=== PATIENT | male | born 1970 | race Caucasian/White ===

== ENCOUNTER 2021-12-12 20:29 | Emergency (ER) | payer BC, OTHER ==
[2021-12-12] MEDS ORDERED: Sodium Chloride 0.9% 1000 ML 1,000 ML IV SCH (20:45)
--- NOTE | 2021-12-12 21:00 | ERPHSYRPT ---
- History of Present Illness Patient Subjective Stated Complaint: rt sided lower abd pain x2 weeks, insurance will not approve CT scan, I continue to be in pain and I want some answers. Triage Nursing Assessment: pt ambulated into ER without diff, spouse at bedside. Pt c/o RLQ abd pain x2 weeks, intermittent. Pt has had this pain x2 weeks, insurance had not approve CT scan so pt came to ER due to alot of pain tonight. Pt denies nausea or vomiting or diarrhea, but has had some indigestion. Abd soft with active bs x4 quad, tender to RLQ on palpation, pain radiates to lower back. Pt has lost approx 100 pounds since last year and is not trying to lose weight. Physician History: Pt c/o RLQ abd pain x2 weeks, intermittent. Pt has had this pain x2 weeks, insurance had not approve CT scan so pt came to ER due to alot of pain tonight. Pt denies nausea or vomiting or diarrhea, but has had some indigestion. Abd soft with active bs x4 quad, tender to RLQ on palpation, pain radiates to lower back. Pt has lost approx 100 pounds since last year and is not trying to lose weight. Timing/Duration: week(s) Quality: aching, dullness, fullness Abdominal Pain Onset Location: RLQ Pain Radiation: no radiation Severity of Pain-Max: moderate Severity of Pain-Current: moderate Modifying Factors: Improves With: nothing Associated Symptoms: loss of appetite, other (weight loss) Previous symptoms: no prior history Allergies/Adverse Reactions: No Known Drug Allergies Allergy (Unverified 12/12/21 20:53) Home Medications: Gabapentin 300 mg PO TID 12/12/21 [History] Glipizide 10 mg [Glucotrol 10 MG] 10 mg PO DAILY 12/12/21 [History] Hctz/Triamterene 25/37.5 mg [Maxzide 25MG] 1 tab PO DAILY 12/12/21 [History] Lisinopril 10 mg [Zestril 10 MG] 10 mg PO DAILY 12/12/21 [History] Metformin HCl 500 mg [Glucophage 500 MG] 1,000 mg PO BID 12/12/21 [History] Pravastatin Sodium 20 mg PO HS 12/12/21 [History] Hx Tetanus, Diphtheria Vaccination/Date Given: No Hx Influenza Vaccination/Date Given: No Hx Pneumococcal Vaccination/Date Given: No Immunizations Up to Date: No Travel Risk - International Travel Have you traveled outside of the country in past 3 weeks: No - Coronavirus Screening Are you exhibiting any of the following symptoms?: No Close contact with a COVID-19 positive Pt in past 14-21 Days: No - Vaccine Status Have you recieved a Covid-19 vaccination: Yes Heddler Tier: Ubi - Vaccination Dates Date of 2cond Vaccination (if applicable): . - Review of Systems Constitutional: No Fever, No Chills Eyes: No Symptoms Ears, Nose, & Throat: No Symptoms Respiratory: No Cough, No Dyspnea Cardiac: No Chest Pain, No Edema, No Syncope Abdominal/Gastrointestinal: Appetite Changes, No Abdominal Pain, No Nausea, No Vomiting, No Diarrhea Genitourinary Symptoms: No Dysuria Musculoskeletal: No Back Pain, No Neck Pain Skin: No Rash Neurological: No Dizziness, No Focal Weakness, No Sensory Changes Psychological: No Symptoms Endocrine: No Symptoms All Other Systems: Reviewed and Negative - Past Medical History Pertinent Past Medical History: Yes Neurological History: No Pertinent History ENT History: No Pertinent History Cardiac History: Hypertension Endocrine Medical History: Diabetes Type II Musculoskeletal History: Fractures GI Medical History: No Pertinent History History: No Pertinent History Psycho-Social History: No Pertinent History Male Reproductive Disorders: No Pertinent History Other Medical History: rib fx, nose fx - Past Surgical History Past Surgical History: No - Social History Smoking Status: Current every day smoker Exposure to second hand smoke: Yes Drug Use: none Patient Lives Alone: No - Nursing Vital Signs Nursing Vital Signs: Initial Vital Signs Pulse Rate 85 12/12/21 20:30 Respiratory Rate 20 12/12/21 20:30 Blood Pressure 183/112 12/12/21 20:30 O2 Sat by Pulse Oximetry 98 12/12/21 20:30 Pain Scale Pain Intensity 8 - Physical Exam General Appearance: no apparent distress, alert Eye Exam: PERRL/EOMI, eyes nml inspection Ears, Nose, Throat Exam: normal ENT inspection, pharynx normal, moist mucous membranes Neck Exam: normal inspection, non-tender, supple, full range of motion Respiratory Exam: normal breath sounds, lungs clear, No respiratory distress Cardiovascular Exam: regular rate/rhythm, normal heart sounds Gastrointestinal/Abdomen Exam: soft, tenderness (right lower quadrant), organomegaly (hepatomegaly), No distention, No mass Back Exam: normal inspection, normal range of motion, No CVA tenderness, No vertebral tenderness Extremity Exam: normal inspection, normal range of motion, pelvis stable Neurologic Exam: alert, oriented x 3, cooperative, normal mood/affect, nml cerebellar function, sensation nml, No motor deficits Skin Exam: normal color, warm, dry SpO2: 98 - Course Nursing assessment & vital signs reviewed: Yes - CT Exams Abdomen/Pelvis CT Interpretation: Tele-radiologist Report (spleenomegaly), Normal Appendix, No appendicitis Ordered Tests: Active Orders 24 hr Category Date Time Status ABDOMEN AND PELVIS W&WO CONTRA [CT] Stat Exams 12/12/21 20:37 Taken AMYLASE Stat Lab 12/12/21 21:07 Completed CBC W DIFF Stat Lab 12/12/21 21:07 Completed CMP Stat Lab 12/12/21 21:07 Completed LIPASE Stat Lab 12/12/21 21:07 Completed UA W/RFX CULTURE Stat Lab 12/12/21 Ordered Medication Summary Generic Name Dose Route Start Last Admin Trade Name Freq PRN Reason Stop Dose Admin Sodium Chloride 1,000 mls @ 100 mls/hr 12/12/21 20:45 12/12/21 21:23 Sodium Chloride 0.9% 1000 Ml IV 01/11/22 20:44 100 mls/hr .Q10H DOLLY Administration Discontinued Medications Generic Name Dose Route Start Last Admin Trade Name Freq PRN Reason Stop Dose Admin Labetalol HCl 10 mg 12/12/21 22:07 12/12/21 22:22 Labetalol Hcl 20 Mg/4 Ml Disp.Syringe IV 12/12/21 22:08 10 mg STAT ONE Administration Labetalol HCl Confirm 12/12/21 22:20 Labetalol Hcl 20 Mg/4 Ml Disp.Syringe Administered 12/12/21 22:21 Dose 20 mg IV .Buyt.In-Ceradis ONE Lab/Rad Data: Laboratory Result Diagrams 12/12/21 21:07 12/12/21 21:07 Laboratory Results 12/12/21 12/12/21 Range/Units 21:07 21:07 WBC 6.1 (4.0-10.5) x10^3/uL RBC 5.18 (4.1-5.6) x10^6/uL Hgb 15.2 (12.5-18.0) g/dL Hct 41.7 L (42-50) % MCV 80.5 (78-100) fL MCH 29.3 (26-32) pg MCHC 36.5 H (32-36) g/dL RDW 12.8 (11.5-14.0) % Plt Count 166 (150-450) x10^3/uL MPV 9.8 (7.5-11.0) fL Gran % 62.2 (36.0-66.0) % Immature Gran % (Auto) 0.2 (0.00-0.4) % Nucleat RBC Rel Count 0.0 (0.00-0.1) % Eos # (Auto) 0.08 (0-0.5) x10^3/uL Immature Gran # (Auto) 0.01 (0.00-0.03) x10^3u/L Absolute Lymphs (auto) 1.73 (1.0-4.6) x10^3/uL Absolute Monos (auto) 0.43 (0.0-1.3) x10^3/uL Absolute Nucleated RBC 0.00 (0.00-0.01) x10^3u/L Lymphocytes % 28.2 (24.0-44.0) % Monocytes % 7.0 (0.0-12.0) % Eosinophils % 1.3 (0.00-5.0) % Basophils % 1.1 (0.0-0.4) % Absolute Granulocytes 3.82 (1.4-6.9) x10^3/uL Basophils # 0.07 (0-0.4) x10^3/uL Sodium 136 L (137-145) mmol/L Potassium 4.5 (3.5-5.1) mmol/L Chloride 98 (98-107) mmol/L Carbon Dioxide 28 (22-30) mmol/L Anion Gap 14.2 (5-15) MEQ/L BUN 14 (9-20) mg/dL Creatinine 0.60 L (0.66-1.25) mg/dL Estimated GFR > 60.0 ML/MIN Glucose 220 H (74-106) mg/dL Calcium 9.0 (8.4-10.2) mg/dL Total Bilirubin 1.00 (0.2-1.3) mg/dL AST 20 (17-59) U/L ALT 17 (0-50) U/L Alkaline Phosphatase 86 (38-126) U/L Serum Total Protein 7.1 (6.3-8.2) g/dL Albumin 4.4 (3.5-5.0) g/dL Amylase 41 (30-110) U/L Lipase 155 (23-300) U/L - Progress Progress: unchanged Will see patient in: hospital (full admit) Counseled pt/family regarding: diagnosis, need for follow-up, rad results - Departure Departure Disposition: Home Clinical Impression: Splenomegaly Abdominal pain Qualifiers: Abdominal location: right lower quadrant Qualified Code(s): R10.31 - Right lower quadrant pain Condition: Stable Critical Care Time: No Referrals: MYLENE BURNETTE MD [Primary Care Provider] - Follow up/PCP as directed Additional Instructions: Discharge/Care Plan ZAHRA ALONZO was seen on 12/12/21 in the Emergency Room. The patient was counseled regarding Diagnosis,Lab results, Imaging studies, need for follow up and when to return to the Emergency Room. Prescriptions given: Discharge Note I have spoken with the patient and/or caregivers. I have explained the patient's condition, diagnosis and treatment plan based on the information available to me at this time. I have answered the patient's and/or caregiver's questions and addressed any concerns. The patient and/or caregivers have as good understanding of the patient's diagnosis, condition and treatment plan as can be expected at this point. The vital signs have been stable. The patient's condition is stable and appropriate for discharge from the emergency department. The patient will pursue further outpatient evaluation with the primary care physician or other designated or consulting physician as outlined in the discharge instructions. The patient and/or caregivers are agreeable to this plan of care and follow-up instructions have been explained in detail. The patient and/or caregivers have received these instruction. The patient/and or caregivers are aware that any significant change in condition or worsening of symptoms should prompt an immediate return to this or the closest emergency department or call 911. ZAHRA ALONZO was seen on 12/12/21 n the Emergency Room. At that time you were treated for an emergent condition, during your visit Laboratory, Radiology and/or other procedures may have been ordered. It is very important that you follow-up with your Primary Care Physician MYLENE BURNETTE within the next 24-48 hours to review your Emergency Room visit and the final results of testing that was ordered. Some test results such as Urine Cultures, Blood Cultures, and other cultures if ordered will not be finalized for 24-48 hours. If you do not have a Primary Care Provider please call the medical records department at [phone] ext [phone] to obtain a copy of your results or you may sign into our patient portal to obtain these results by visiting us @ [email or web address] and completing the following steps: 1. Click on the Patient Portal link 2. Click the Patient Self Enrollment Link to complete the enrollment form and entering your 3. Once the enrollment form is completed you will receive an email with a temporary ID and password at the email address you provided. 4. Next choose a user name and password. Your user name must be at least 4 characters long and your password must be at least 4 characters long. 5. Choose a security question from the list and provide your answer to the question. If you already have signed into the Health Portal you may access your Health Care Information 23/09 by the following steps: 1. Login to our website @ [email or web address] 2. Enter your original user name and password. FAQS The [facility] Portal is an online tool that contains your Lab Results, Radiology Reports, Visit History, Discharge Instructions and Health Summary Lab and Radiology Results will not be available for 72 hours on the portal. The Portal is a secure site, passwords are encryted and URLs are re-written so they cannot be copied and pasted. You and authorized family members are the only ones who can access your Portal. Also there is a timeout feature that protects your information if you leave the Portal page open. If you have technical difficulty please use the Contact Us link on the page this will allow you to submit any questions you have regarding the Portal or you may contact the Medical Record Department at [phone] ext [phone].
[2021-12-12 21:10] LABS: Absolute Neutrophil Ct (ANC) 3.82 x10^3/uL (1.4-6.9); Basophil (Absolute #) 0.07 x10^3/uL (0-0.4); Eosinophil % 1.3 % (0.00-5.0); Eosinophil (Absolute #) 0.08 x10^3/uL (0-0.5); Hematocrit 41.7 % (42-50); Hemoglobin 15.2 g/dL (12.5-18.0); Lymphocyte (Absolute #) 1.73 x10^3/uL (1.0-4.6); Lymphocytes % 28.2 % (24.0-44.0); Mean Cell Volume 80.5 fL (78-100); Mean Corpuscular Hemoglobin 29.3 pg (26-32); Mean Corpuscular Hgb Concent. 36.5 g/dL (32-36); Mean Platelet Volume 9.8 fL (7.5-11.0); Monocyte (Absolute #) 0.43 x10^3/uL (0.0-1.3); Neutrophil % 62.2 % (36.0-66.0); Platelet Count 166 x10^3/uL (150-450); Red Blood Count 5.18 x10^6/uL (4.1-5.6); Red Cell Distribution Width 12.8 % (11.5-14.0); White Blood Count 6.1 x10^3/uL (4.0-10.5)
[2021-12-12] MEDS ORDERED: Sodium Chloride 0.9% 1000 ML 1,000 ML ONE (21:22)
[2021-12-12 21:33] LABS: ALBUMIN 4.4 g/dL (3.5-5.0); ALKALINE PHOSPHATASE 86 U/L (38-126); AMYLASE 41 U/L (30-110); ANION GAP 14.2 MEQ/L (5-15); BLOOD UREA NITROGEN 14 mg/dL (9-20); CHLORIDE 98 mmol/L (98-107); Carbon Dioxide 28 mmol/L (22-30); EST GLOMERULAR FILTRATION RATE > 60.0 ML/MIN; Glucose 220 mg/dL (74-106); LIPASE 155 U/L (23-300); Potassium 4.5 mmol/L (3.5-5.1); SGOT/AST 20 U/L (17-59); SGPT/ALT 17 U/L (0-50); SODIUM 136 mmol/L (137-145); Total Protein 7.1 g/dL (6.3-8.2)
[2021-12-12] MEDS ORDERED: TRANDATE 20 MG/4 ML SYRINGE IV ONE ×2 (22:07→22:20)
[2021-12-12 22:12] VITALS: O2SAT 98
[2021-12-12 22:46] VITALS: BP 156/99; PULSE 73
--- NOTE | 2021-12-13 08:39 | XRAY ---
Indication: Right lower quadrant pain, nausea, and vomiting 2.5 weeks. Multiple contiguous axial images obtained through the abdomen and pelvis prior to and following 80 cc Isovue 370 contrast as ordered. Comparison: None Lung bases demonstrates tiny right base calcified granuloma. Heart not enlarged. Noncontrasted images demonstrates tiny splenic calcified granulomas. No other visceral calcifications/calculi. Noncontrasted stomach and bowel loops appear nonobstructed with normal appendix. There is mild diffuse scattered colonic fecal debris throughout. No free fluid/air. Postcontrast images demonstrates normal visceral enhancement and renal excretion. Spleen is enlarged measuring 16.4 cm. Remaining liver, gallbladder, pancreas, spleen, adrenal glands, kidneys, ureters, bladder, and aorta are normal in CT appearance and attenuation. No pathologic retroperitoneal lymphadenopathy. Osseous structures intact with minimal degenerative changes throughout the spine. No ventral or inguinal hernias. Impression: 1. Mild diffuse fecal stasis, splenomegaly, and old granulomatous disease. 2. Remaining CT abdomen/pelvis with and without contrast exam is negative.
== END 2021-12-12 22:49 | disposition home or self-care (01) ==
LOC: ED 20:29
DX: R16.1 Splenomegaly, not elsewhere classified (principal); R10.31 Right lower quadrant pain; I10 Essential (primary) hypertension; E11.9 Type 2 diabetes mellitus without complications; Z72.0 Tobacco use; Z79.84 Long term (current) use of oral hypoglycemic drugs; Z79.899 Other long term (current) drug therapy
CPT/HCPCS: 36000; 36415; 74178; 80053; 82150; 83690; 85025; 96374; 99284

== ENCOUNTER 2022-01-18 05:49 | Day surgery (SDC) | payer OTHER ==
[2022-01-18] MEDS ORDERED: DIPRIVAN 200 MG/20 ML IV ONE ×3 (05:57→08:00)
[2022-01-18] MEDS ORDERED: Xylocaine-Mpf 2% 5 Ml Vial ONE (05:57)
[2022-01-18] MEDS ORDERED: Lactated Ringers 1,000 ML IV SCH (06:30)
[2022-01-18] MEDS ORDERED: GlucaGen 1 MG ONE (07:47)
[2022-01-18] MEDS ORDERED: Ephedrine Sulfate 50 MG/ML ONE (07:49)
[2022-01-18 08:51] VITALS: O2SAT 94
[2022-01-18 09:04] VITALS: BP 148/88; PULSE 85
--- NOTE | 2022-02-07 08:50 | OP ---
SURGERY DATE/TIME: 01/18/2022 0711 PREOPERATIVE DIAGNOSES: 1) Change in bowel habits, constipation, screening. 2) Epigastric pain, nausea and vomiting. POSTOPERATIVE DIAGNOSES: 1) Gastritis. 2) Mild sigmoid diverticulosis. PROCEDURES: 1) EGD and cold biopsy. 2) Colonoscopy complete to cecum. SURGEON: Jeffrey Mares M.D. ANESTHESIA: MAC. COMPLICATIONS: None. CONDITION: Stable. INDICATION: A patient presents for evaluation. DESCRIPTION OF PROCEDURE: Taken to endoscopy. MAC sedation provided. Good anesthesia is present. Scope introduced. Pharyngoesophageal junction normal. Esophagus normal down to gastroesophageal junction. No hiatal hernia. Minimal irritation. In the fundus, body and antrum there was gastritis. 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 Pylorus satisfactory. Duodenal bulb satisfactory. Second portion satisfactory. Scope looped on itself, no hiatal hernia. Scope withdrawn. Anal digital examination satisfactory. Prostate satisfactory. Scope advanced to the cecum. Base of the cecum, ileocecal valve, appendiceal orifice was visualized. Ascending, hepatic, transverse, splenic, descending there was mild sigmoid diverticulosis. Rectum and anus normal. IMPRESSION: Mild diverticulosis. PLAN: Five to ten years.
== END 2022-01-18 09:10 | disposition home or self-care (01) ==
LOC: SDC 05:49 → EDSTATUS 18:49
PROVIDERS: ATTEND Surgery
DX: K57.30 Diverticulosis of large intestine without perforation or abscess without bleeding (principal); K29.70 Gastritis, unspecified, without bleeding; R19.4 Change in bowel habit; R10.13 Epigastric pain; R11.10 Vomiting, unspecified; Z12.5 Encounter for screening for malignant neoplasm of prostate; E11.9 Type 2 diabetes mellitus without complications
CPT/HCPCS: 36415; 43239; 45378; 82947; 84439; 84443; G0103; 88305; J1610; J2704

== ENCOUNTER 2024-07-14 23:55 | Observation (INO) | payer BC, OTHER ==
[2024-07-14] MEDS ORDERED: DUONEB 0.5-3 MG/3 ml Neb IH ONE (23:58)
[2024-07-15 00:16] LABS: Absolute Neutrophil Ct (ANC) 4.08 x10^3/uL (1.78-5.38); BASOPHIL % 1.5 % (0.2-1.2); Basophil (Absolute #) 0.12 x10^3/uL (0.01-0.08); Eosinophil % 3.8 % (0.8-7.0); Eosinophil (Absolute #) 0.31 x10^3/uL (0.04-0.54); Hematocrit 43.1 % (40.1-51.0); Hemoglobin 15.3 g/dL (13.7-17.5); IMMATURE GRAN # 0.01 x10^3u/L (0.001-0.031); IMMATURE GRAN % 0.1 % (0.001-0.429); Lymphocyte (Absolute #) 3.07 x10^3/uL (1.32-3.57); Lymphocytes % 38.1 % (21.8-53.1); Mean Cell Volume 81.2 fL (79.0-92.2); Mean Corpuscular Hemoglobin 28.8 pg (25.7-32.2); Mean Corpuscular Hgb Concent. 35.5 g/dL (32.3-36.5); Mean Platelet Volume 10.8 fL (9.4-12.4); Monocyte (Absolute #) 0.47 x10^3/uL (0.30-0.82); Monocytes % 5.8 % (5.3-12.2); Neutrophil % 50.7 % (34.0-67.9); Platelet Count 184 x10^3/uL (163-337); Red Blood Count 5.31 x10^6/uL (4.63-6.08); Red Cell Distribution Width 13.2 % (11.6-14.4); White Blood Count 8.1 x10^3/uL (4.23-9.07)
[2024-07-15 00:27] LABS: VBG BASE EXCESS 1.8 (-2.0-2.0); VBG CARBOXYHEMOGLOBIN 4.1 % T HGB (0.0-6.9); VBG HCO3- 23.9 meq/L (22-28); VBG HEMOGLOBIN 14.9; VBG O2 SATURATION 98.9 (95-100); VBG POTASSIUM 3.6 (3.5-5.1); VBG pH 7.51 (7.32-7.42)
[2024-07-15 00:30] LABS: ALBUMIN 5.1 g/dL (3.5-5.0); ALKALINE PHOSPHATASE 106 U/L (38-126); ANION GAP 18.7 MEQ/L (5-15); BLOOD UREA NITROGEN 17 mg/dL (9-20); CHLORIDE 102 mmol/L (98-107); Calcium 9.7 mg/dL (8.4-10.2); Carbon Dioxide 25 mmol/L (22-30); EST GLOMERULAR FILTRATION RATE 103.4 ML/MIN; Glucose 216 mg/dL (74-106); Potassium 3.7 mmol/L (3.5-5.1); SGOT/AST 28 U/L (17-59); SGPT/ALT 22 U/L (0-50); SODIUM 142 mmol/L (135-145); TROPONIN < 0.012 ng/mL (0.000-0.033); Total Protein 8.1 g/dL (6.3-8.2)
--- NOTE | 2024-07-15 00:54 | ERPHSYRPT ---
- History of Present Illness Time Seen by Provider: 07/15/24 00:00 Source: patient Exam Limitations: no limitations Patient Subjective Stated Complaint: "I was on my tractor and a hose popped off and then all I could see was a cloud of white, I think it was anhydrous ammonia. I got really lightheaded and felt like I could . I drove on the side of the road and called 911." Triage Nursing Assessment: Pt presents to ER from a possible exposure to anhydrous ammonia while working on a tractor this evening. EMS states patient was weak, lethargic, and short of breath. Pt was taken back for decontamination prior to being brought into ER. Pt was able to stand and shower. Spo2 was 94% and HR was 112 during decontamination. Pt was taken to ER Room 1, respirations slightly labored. Pt appears pale and slightly flushed. Lungs sounds clear and equal throughout. Pt has dry intermittent coughing. Pt appears alert and oriented x 3. No rash or swelling of the throat noted. Physician History: Patient is a 53-year-old male presents to our ED via EMS for evaluation post exposure to anhydrous ammonia. Patient states he was hauling anhydrous ammonia with his tractor. He reports a hose popped off and a cloud of white anhydrous ammonia infiltrated the air. Patient states he became lightheaded and short of breath. Patient was able to call 911. Upon EMS arrival patient was reportedly weak lethargic and short of breath. Patient was brought to our ED. Patient was straight into the decontamination room. Patient's close were removed. Patient was decontaminated per protocol then escorted into our emergency department for evaluation. Upon arrival patient's O2 sat on room air was 94%. Patient was tachycardic at 112. Patient denied pain. Patient voiced no other complaints or concerns. Portions of this note were created with voice recognition technology. There may be grammatical, spelling, punctuation or sound alike errors w Timing/Duration: today Severity: moderate Modifying Factors: Improves With: nothing Associated Symptoms: denies symptoms Allergies/Adverse Reactions: No Known Drug Allergies Allergy (Verified 07/15/24 00:04) Home Medications: Lisinopril 10 mg [Zestril 10 MG] 10 mg PO DAILY 12/12/21 [History] Semaglutide [Ozempic] 0.5 mg SQ WEEKLY 07/15/24 [History] Hx Tetanus, Diphtheria Vaccination/Date Given: No Hx Influenza Vaccination/Date Given: No Hx Pneumococcal Vaccination/Date Given: No Immunizations Up to Date: No Travel Risk - International Travel Have you traveled outside of the country in past 3 weeks: No - Emerging Infectious Disease Are you exhibiting symptoms associated with any current EIDs: No - Review of Systems Constitutional: No Symptoms, No Fever, No Chills Eyes: No Symptoms Ears, Nose, & Throat: No Symptoms Respiratory: No Symptoms, No Cough, No Dyspnea Cardiac: No Symptoms, No Chest Pain, No Edema, No Syncope Abdominal/Gastrointestinal: No Symptoms, No Abdominal Pain, No Nausea, No Vomiting, No Diarrhea Genitourinary Symptoms: No Symptoms, No Dysuria Musculoskeletal: No Symptoms, No Back Pain, No Neck Pain Skin: No Symptoms, No Rash Neurological: No Symptoms, No Dizziness, No Focal Weakness, No Sensory Changes Psychological: No Symptoms Endocrine: No Symptoms Hematologic/Lymphatic: No Symptoms Immunological/Allergic: No Symptoms All Other Systems: Reviewed and Negative - Past Medical History Pertinent Past Medical History: Yes Neurological History: Other ENT History: No Pertinent History Cardiac History: Hypertension Respiratory History: No Pertinent History Endocrine Medical History: Diabetes Type II Musculoskeletal History: No Pertinent History GI Medical History: No Pertinent History History: No Pertinent History Psycho-Social History: No Pertinent History Male Reproductive Disorders: No Pertinent History Other Medical History: BACK PAIN, HISTORY OF BULDGING DISCS. CORTISONE SHOTS IN B SHOULDERS. GALLBLADDER REMOVED . - Past Surgical History Past Surgical History: Yes Neuro Surgical History: No Pertinent History Cardiac: No Pertinent History Respiratory: No Pertinent History Gastrointestinal: Cholecystectomy Genitourinary: No Pertinent History Musculoskeletal: Orthopedic Surgery Male Surgical History: No Pertinent History - Social History Smoking Status: Never smoker Exposure to second hand smoke: No Drug Use: none - Social Determinants of Health Will the patient participate in the screening: Yes Do you worry about a steady place to live?: No Do you have any problems with any of the following?: No known problems In the past 12 months,have you had to go without utilities?: No Transportation Issues: No Has anyone in your support network made you feel unsafe?: No Have you or anyone in your house had to go w/o enough food: No - Nursing Vital Signs Nursing Vital Signs: Initial Vital Signs Temperature 97.6 F 07/14/24 23:56 Pulse Rate 104 H 07/14/24 23:56 Respiratory Rate 16 07/14/24 23:56 O2 Sat by Pulse Oximetry 100 07/14/24 23:56 Pain Scale Pain Intensity 0 - Physical Exam General Appearance: no apparent distress, alert Eye Exam: PERRL/EOMI, eyes nml inspection Ears, Nose, Throat Exam: normal ENT inspection, pharynx normal, moist mucous membranes Neck Exam: normal inspection, non-tender, supple, full range of motion Respiratory Exam: normal breath sounds, lungs clear, airway intact, No respiratory distress Cardiovascular Exam: regular rate/rhythm, normal heart sounds, normal peripheral pulses Gastrointestinal/Abdomen Exam: soft, normal bowel sounds, No tenderness, No mass Back Exam: normal inspection, normal range of motion, No CVA tenderness, No vertebral tenderness Extremity Exam: normal inspection, normal range of motion, pelvis stable Neurologic Exam: alert, oriented x 3, cooperative, normal mood/affect, sensation nml, No motor deficits Skin Exam: normal color, warm, dry, No rash Lymphatic Exam: No adenopathy SpO2 Interpretation: normal SpO2: 99 O2 Delivery: Room Air - Course Nursing assessment & vital signs reviewed: Yes EKG Interpreted by Me: RATE (94), Sinus Rhythm, NORMAL AXIS, NORMAL INTERVALS, NORMAL QRS - Radiology Exams Chest X-ray Interpretation: Teleradiologist Report (Bronchitis, prominent bronchovascular markings) Ordered Tests: Active Orders 24 hr Category Date Time Status Bedrest ROUTINE Activity 07/15/24 01:02 Active Call Admit Doctor for Orders ON ADMISSION Care 07/15/24 01:02 Active Silverware Supervisor ROUTINE Care 07/15/24 01:02 Active Silverware Supervisor STAT Care 07/14/24 23:59 Completed Code Status Order ROUTINE Care 07/15/24 01:02 Active EKG-ER Only STAT Care 07/14/24 23:59 Completed IV Insertion STAT Care 07/14/24 23:59 Completed Neuro Checks Q4H Care 07/15/24 01:[address] in Observation ROUTINE Care 07/15/24 01:02 Active Pulse Oximetry (ED) STAT Care 07/14/24 23:59 Completed Telemetry q6h Care 07/15/24 01:02 Active Consistent Carbohydrate Diet 1800 Calorie Diet 07/15/24 Breakfast Active CHEST 1 VIEW (PORTABLE) Stat Exams 07/14/24 23:59 Completed TROPONIN Q4H Lab 07/15/24 03:59 Ordered TROPONIN Q4H Lab 07/15/24 07:59 Ordered VENOUS BLOOD GAS Stat Lab 07/14/24 23:59 Completed Pulse Oximetry CONTINUOUS RT 07/15/24 01:02 Active Transfer Order Routine Transfer 07/15/24 Completed Medication Summary Discontinued Medications Generic Name Dose Route Start Last Admin Trade Name Jerilyn PRN Reason Stop Dose Admin Methylprednisolone Sodium 0 mg 07/15/24 01:07 07/15/24 01:17 Succinate 125 mg/ Sterile IV 07/15/24 01:08 125 mg Water 2 ml STAT ONE Administration Methylprednisolone Sodium Succinate Confirm 07/15/24 01:15 Methylprednis Sod Succ 125 Mg/2 Ml Vial Administered 07/15/24 01:16 Dose 125 mg .ROUTE .STK-MED ONE Sterile Water Confirm 07/15/24 01:15 Water For Injection,Sterile 10 Ml Vial Administered 07/15/24 01:16 Dose 10 ml IJ .STK-MED ONE Lab/Rad Data: Laboratory Result Diagrams 07/14/24 00:10 07/14/24 00:10 Laboratory Results 07/15/24 07/14/24 07/14/24 Range/Units 00:21 00:10 00:10 WBC 8.1 (4.23-9.07) x10^3/uL RBC 5.31 (4.63-6.08) x10^6/uL Hgb 15.3 (13.7-17.5) g/dL Hct 43.1 (40.1-51.0) % MCV 81.2 (79.0-92.2) fL MCH 28.8 (25.7-32.2) pg MCHC 35.5 (32.3-36.5) g/dL RDW 13.2 (11.6-14.4) % Plt Count 184 (163-337) x10^3/uL MPV 10.8 (9.4-12.4) fL Gran % 50.7 (34.0-67.9) % Immature Gran % (Auto) 0.1 (0.001-0.429) % Nucleat RBC Rel Count 0.0 (0.00-0.2) % Eos # (Auto) 0.31 (0.04-0.54) x10^3/uL Immature Gran # (Auto) 0.01 (0.001-0.031) x10^3u/L Absolute Lymphs (auto) 3.07 (1.32-3.57) x10^3/uL Absolute Monos (auto) 0.47 (0.30-0.82) x10^3/uL Absolute Nucleated RBC 0.00 (0.00-0.012) x10^3u/L Lymphocytes % 38.1 (21.8-53.1) % Monocytes % 5.8 (5.3-12.2) % Eosinophils % 3.8 (0.8-7.0) % Basophils % 1.5 H (0.2-1.2) % Absolute Granulocytes 4.08 (1.78-5.38) x10^3/uL Basophils # 0.12 H (0.01-0.08) x10^3/uL pO2/FiO2 Ratio 21.0 % VBG pH 7.51 H (7.32-7.42) VBG pCO2 at Pat Temp 30 L (42-55) mm/Hg VBG pO2 at Pat Temp 88 H (25-40) mm/Hg VBG HCO3 23.9 (22-28) meq/L VBG O2 Sat (Riley) 98.9 (95-100) VBG Base Excess 1.8 (-2.0-2.0) VBG Hemoglobin 14.9 VBG Carboxyhemoglobin 4.1 (0.0-6.9) % T HGB POC Potassium 3.6 (3.5-5.1) Sodium 142 (135-145) mmol/L Potassium 3.7 (3.5-5.1) mmol/L Chloride 102 (98-107) mmol/L Carbon Dioxide 25 (22-30) mmol/L Anion Gap 18.7 H (5-15) MEQ/L BUN 17 (9-20) mg/dL Creatinine 0.90 (0.66-1.25) mg/dL Estimated GFR 103.4 ML/MIN Glucose 216 H (74-106) mg/dL Calcium 9.7 (8.4-10.2) mg/dL Total Bilirubin 1.20 (0.2-1.3) mg/dL AST 28 (17-59) U/L ALT 22 (0-50) U/L Alkaline Phosphatase 106 (38-126) U/L Troponin I < 0.012 (0.000-0.033) ng/mL Serum Total Protein 8.1 (6.3-8.2) g/dL Albumin 5.1 H (3.5-5.0) g/dL - Progress Progress: improved Progress Note: 53-year-old male presents to our ED status post exposure to anhydrous ammonia. We consulted with poison control who is stated patient should be observed until he has been asymptomatic for at least 6 hours. Patient is still somewhat short of breath. Workup thus far is within normal limits. Patient received albuterol nebulizer and route via ambulance. Patient's family member refused additional bronchodilator. He stated that bronchodilators should not be used with anhydrous ammonia exposure. However this is obviously inaccurate. Nonetheless patient is resting comfortably with cooled humidified air. Patient will be admitted for further observation. Patient currently otherwise asymptomatic. Significant other at bedside. They voiced no other complaints or concerns at this time. We advised him of the poison control recommendations. They agree to admission to [facility] for further evaluation and treatment. Portions of this note were created with voice recognition technology. There may be grammatical, spelling, punctuation or sound alike errors Complexity of problem addressed is moderate acute complicated. No critical care time. Complexity of data reviewed and analyzed extensive. Test ordered test reviewed results analyzed and correlated clinically with history and physical exam. Risk of complication and or risk of morbidity/mortality of patient management is high. Patient requires hospitalization for further evaluation and treatment. Vital stable. Time spent to admit patient is approximately 15 minutes. Plan of care established for shared decision making. No social determinants of health present to impede follow-up. Portions of this note were created with voice recognition technology. There may be grammatical, spelling, punctuation or sound alike errors Patient accepted by Dr. Amador at 1254 am 07/15/24 00:48 Patient observed to clear his throat more frequently. No respiratory distress. Patient received a dose of Solu-Medrol 125. Counseled pt/family regarding: lab results, diagnosis, rad results - Departure Departure Disposition: Observation Clinical Impression: Exposure to anhydrous ammonia, Bronchitis Condition: Stable Critical Care Time: No
[2024-07-15] MEDS ORDERED: solu-MEDROL ONE (01:15)
[2024-07-15] MEDS ORDERED: Sterile H2O 10 ml IJ ONE (01:15)
[2024-07-15] MEDS: solu-MEDROL 125 MG, Sterile H2O 10 ml 2 ML IV ONE (01:17)
--- NOTE | 2024-07-15 01:21 | XRAY ---
CLINICAL HISTORY: sob COMPARISON: No prior studies are available for comparison. TECHNIQUE: An X-ray image of the chest is obtained in AP projection. FINDINGS: Pulmonary Parenchyma: Prominent perihilar bronchovascular markings with mild peribronchial cuffing. Possible infiltrates versus prominent bronchovascular markings in the left lower zone. No evidence of consolidation or collapse. No pulmonary nodules are identified. No evidence of pleural effusion or pleural thickening. Heart and Mediastinum: Heart size and shape are normal. No mediastinal widening or masses. No hilar or mediastinal lymphadenopathy. Bony Thorax: Bony thorax appears intact without fractures or deformities. Soft Tissues: Soft tissues overlying the chest wall are unremarkable. Overlying chest leads are seen. IMPRESSION: 1. Prominent perihilar bronchovascular markings with mild peribronchial cuffing may suggest bronchitis/small airway disease or congestion. 2. Possible infiltrates versus prominent bronchovascular markings in the left lower zone. Clinical correlation is suggested. 3. No evidence of consolidation, collapse, or pleural effusion. Electronically Signed by: Tasneem Reynolds MD. (07/15/2024 01:16:57 EDT)
[2024-07-15] MEDS ORDERED: HUMALOG SQ PRN (02:03)
--- NOTE | 2024-07-15 02:12 | PCM.HP ---
History of Present Illness - Chief Complaint Chief Complaint: Anhydrous ammonia exposure Date: 07/14/24 History of Present Illness: is a 53 year old male With past medical history significant for diabetes mellitus and hypertension who is a [employer] by profession came to the ER this evening after possible exposure to anhydrous ammonia while working on a tractor. As per patient since after he got exposed he is feeling very tired short of breath lightheaded. In the ER he saturation was 94% heart rate was 112 he was initially placed on 4 L oxygen he was AO x 3 as well as vitals and concerns all were pretty stable blood workup was essentially negative.chest x- ray was concerning for some infiltrates patient denying cough although he is trying to clear his throat repeatedly. Poison control contacted they advised to watch patient for at least 6 hours. At the time of my encounter he denied having any other symptom except feeling tired. He was on room air saturating 98% - Review of Systems All Other Systems: Reviewed and Negative (14 systems reviewed and marked ve except mentioned in [place]) Medications & Allergies Home Medications: Home Medication List Lisinopril 10 mg [Zestril 10 MG] 10 mg PO DAILY 12/12/21 [History Confirmed 07/15/24] Semaglutide [Ozempic] 0.5 mg SQ WEEKLY 07/15/24 [History Confirmed 07/15/24] Allergies/Adverse Reactions: Allergies Allergy/AdvReac Type Severity Reaction Status Date / Time No Known Drug Allergies Allergy Verified 07/15/24 00:04 - Past Medical History Past Medical History: Yes Neurological History: Other ENT History: No Pertinent History Cardiac History: Hypertension Respiratory History: No Pertinent History Endocrine Medical History: Diabetes Type II Musculoskelatal History: No Pertinent History GI Medical History: No Pertinent History History: No Pertinent History Pyscho-Social History: No Pertinent History Male Reproductive Disorders: No Pertinent History Comment: BACK PAIN, HISTORY OF BULDGING DISCS. CORTISONE SHOTS IN B SHOULDERS. GALLBLADDER REMOVED . - Past Surgical History Past Surgical History: Yes Neuro Surgical History: No Pertinent History Cardiac History: No Pertinent History Respiratory Surgery: No Pertinent History GI Surgical History: Cholecystectomy Genitourinary Surgical Hx: No Pertinent History Musculskeletal Surgical Hx: Orthopedic Surgery Male Surgical History: No Pertinent History Other Surgical History: left hand and elbow Significant Family History: no pertinent family hx (No family history pertaining to this admission reported.) - Social History Smoking Status: Never smoker Exposure to second hand smoke: No Alcohol: None Drug Use: none - Social Determinants of Health Will the patient participate in the screening: Yes Do you worry about a steady place to live?: No Do you have any problems with any of the following?: No known problems In the past 12 months,have you had to go without utilities?: No Have you or anyone in your house had to go without enough: No Transportation Issues: No Has anyone in your support network made you feel unsafe?: No - Physical Exam Vital Signs: Vital Signs - 24 hr Temp Pulse Resp BP Pulse Ox 07/15/24 01:32 99 07/15/24 01:00 94 H 21 143/97 99 07/15/24 00:30 95 H 17 136/97 99 07/15/24 00:13 99 07/15/24 00:07 95 H 18 183/115 100 07/14/24 23:56 97.6 F 104 H 16 100 Additional Findings: 07/15/24 02:07 HEENT Young aged, average built in no resp distress, saturating 94 % on RA NECK Supple,no thyromegaly, CVS S1+S2 + 0, no murmers RESP Bilateral equal air entry without Crepts/Wheezes heard GIT Soft non tender,non distended Skin, No rah, no Bruises LEGS No Edema PSYCH Normal,mood, judgement and insight NEURO AOX3, no focal deficit Results - Labs Lab/Micro Results: Lab Results-Last 24 Hours 07/14/24 07/14/24 07/15/24 Range/Units 00:10 00:10 00:21 WBC 8.1 (4.23-9.07) x10^3/uL RBC 5.31 (4.63-6.08) x10^6/uL Hgb 15.3 (13.7-17.5) g/dL Hct 43.1 (40.1-51.0) % MCV 81.2 (79.0-92.2) fL MCH 28.8 (25.7-32.2) pg MCHC 35.5 (32.3-36.5) g/dL RDW 13.2 (11.6-14.4) % Plt Count 184 (163-337) x10^3/uL MPV 10.8 (9.4-12.4) fL Gran % 50.7 (34.0-67.9) % Immature Gran % (Auto) 0.1 (0.001-0.429) % Nucleat RBC Rel Count 0.0 (0.00-0.2) % Eos # (Auto) 0.31 (0.04-0.54) x10^3/uL Immature Gran # (Auto) 0.01 (0.001-0.031) x10^3u/L Absolute Lymphs (auto) 3.07 (1.32-3.57) x10^3/uL Absolute Monos (auto) 0.47 (0.30-0.82) x10^3/uL Absolute Nucleated RBC 0.00 (0.00-0.012) x10^3u/L Lymphocytes % 38.1 (21.8-53.1) % Monocytes % 5.8 (5.3-12.2) % Eosinophils % 3.8 (0.8-7.0) % Basophils % 1.5 H (0.2-1.2) % Absolute Granulocytes 4.08 (1.78-5.38) x10^3/uL Basophils # 0.12 H (0.01-0.08) x10^3/uL pO2/FiO2 Ratio 21.0 % VBG pH 7.51 H (7.32-7.42) VBG pCO2 at Pat Temp 30 L (42-55) mm/Hg VBG pO2 at Pat Temp 88 H (25-40) mm/Hg VBG HCO3 23.9 (22-28) meq/L VBG O2 Sat (Riley) 98.9 (95-100) VBG Base Excess 1.8 (-2.0-2.0) VBG Hemoglobin 14.9 VBG Carboxyhemoglobin 4.1 (0.0-6.9) % T HGB POC Potassium 3.6 (3.5-5.1) Sodium 142 (135-145) mmol/L Potassium 3.7 (3.5-5.1) mmol/L Chloride 102 (98-107) mmol/L Carbon Dioxide 25 (22-30) mmol/L Anion Gap 18.7 H (5-15) MEQ/L BUN 17 (9-20) mg/dL Creatinine 0.90 (0.66-1.25) mg/dL Estimated GFR 103.4 ML/MIN Glucose 216 H (74-106) mg/dL Calcium 9.7 (8.4-10.2) mg/dL Total Bilirubin 1.20 (0.2-1.3) mg/dL AST 28 (17-59) U/L ALT 22 (0-50) U/L Alkaline Phosphatase 106 (38-126) U/L Troponin I < 0.012 (0.000-0.033) ng/mL Serum Total Protein 8.1 (6.3-8.2) g/dL Albumin 5.1 H (3.5-5.0) g/dL - Radiology Impressions Radiology Exams & Impressions: Radiology Procedures Category Date Time Status CHEST 1 VIEW (PORTABLE) Stat Exams 07/14/24 23:59 Completed Assessment/Plan (1) Bronchitis Current Visit: Yes Status: Acute Code(s): J40 - BRONCHITIS, NOT SPECIFIED ACUTE OR CHRONIC (2) Toxin exposure Current Visit: Yes Status: Acute Code(s): Z77.29 - CONTACT WITH AND EXPOSURE TO OTHER HAZARDOUS SUBSTANCES (3) Hypertension Current Visit: Yes Status: Acute Code(s): I10 - ESSENTIAL (PRIMARY) HYP ERTENSION (4) Diabetes mellitus Current Visit: Yes Status: Acute Code(s): E11.9 - TYPE 2 DIABETES MELLITUS WITHOUT COMPLICATIONS Telemedicine Encounter - Telemedicine Encounter Telemedicine Encounter: The entirety of this encounter was performed via TelemedicineThis visit was performed using real-time audio and video connection between my location and thepatients locationwith the assistance of a surrogateat the patients location. Written or verbal consent was obtained from the patient/guardian to perform this visit usingde[facility] systemMS[facility] Cybersecurityind[facility] method[facility] hospitalYodlecine technology. Any patient questions regarding the telemedicine interaction were answered. Toxin exposure Patient admitted for observation after exposure to anhydrous ammonia at workplace Poison control contacted they advised observation for 6 hours at least Patient is currently saturating 94% on room air Continue breathing therapy every 4 hours Lung infiltrates Chest x-ray concerning for bronchitis/infiltrates Might consider CT chest in the morning for further evaluation I will start him on Septra and azithromycin for now Hypertension Blood pressure pretty stable Will resume home blood pressure meds Diabetes mellitus type 2 We will continue sliding scale coverage We will check HbA1c DVT prophylaxis SCD/Lovenox CODE STATUS full discharge planning pending clinical stability I have reviewed patient levels and imaging in detail question and concerns were addressed
[2024-07-15 04:12] VITALS: RESP 16
[2024-07-15] MEDS ORDERED: DUONEB 0.5-3 MG/3 ml Neb IH PRN (04:57)
[2024-07-15] MEDS: DUONEB 0.5-3 MG/3 ml Neb IH SCH (04:58)
[2024-07-15 07:39] LABS: Absolute Neutrophil Ct (ANC) 5.49 x10^3/uL (1.78-5.38); BASOPHIL % 0.5 % (0.2-1.2); Basophil (Absolute #) 0.03 x10^3/uL (0.01-0.08); Eosinophil % 0.2 % (0.8-7.0); Eosinophil (Absolute #) 0.01 x10^3/uL (0.04-0.54); Hematocrit 42.3 % (40.1-51.0); IMMATURE GRAN # 0.02 x10^3u/L (0.001-0.031); IMMATURE GRAN % 0.3 % (0.001-0.429); Lymphocyte (Absolute #) 0.61 x10^3/uL (1.32-3.57); Lymphocytes % 9.8 % (21.8-53.1); Mean Cell Volume 81.3 fL (79.0-92.2); Mean Corpuscular Hemoglobin 28.8 pg (25.7-32.2); Mean Corpuscular Hgb Concent. 35.5 g/dL (32.3-36.5); Mean Platelet Volume 10.1 fL (9.4-12.4); Monocyte (Absolute #) 0.05 x10^3/uL (0.30-0.82); Monocytes % 0.8 % (5.3-12.2); Neutrophil % 88.4 % (34.0-67.9); Platelet Count 151 x10^3/uL (163-337); Red Cell Distribution Width 12.9 % (11.6-14.4); White Blood Count 6.2 x10^3/uL (4.23-9.07)
[2024-07-15 08:41] LABS: ALBUMIN 4.8 g/dL (3.5-5.0); BILIRUBIN,TOTAL 1.4 mg/dL (0.2-1.3); Calcium 9.3 mg/dL (8.4-10.2); Creatinine 1 0.7 mg/dL (0.66-1.25); EST GLOMERULAR FILTRATION RATE 111.6 ML/MIN; PROCALCITONIN 0.042 ng/mL (0.030-0.080); Potassium 4.3 mmol/L (3.5-5.1)
[2024-07-15] MEDS: Zestril 10 MG PO SCH (09:29)
[2024-07-15] MEDS: ENOXAPARIN SODIUM SQ SCH (09:30)
[2024-07-15] MEDS: ROCEPHIN 1 GM / 100 ML NaCl 1 GM/100 ML IVPB IV SCH (09:32)
[2024-07-15] MEDS: ZITHROMAX IV*** 500 MG in Sodium Chloride 0.9% 250 ML 250 ML IV SCH (10:33)
[2024-07-15 11:50] VITALS: BP 154/92; PULSE 97; TEMP 98.4; O2SAT 100
--- NOTE | 2024-07-15 12:28 | PCM.DS ---
Discharge Summary Date of Admission: 07/15/24 01:00 Date of Discharge: 07/15/24 Admitting Physician: LINH ELLIS MD Primary Care Provider: THOR UNDERWOOD DO Allergies Allergies No Known Drug Allergies Allergy (Verified 07/15/24 00:04) Hospital Summary - Hospital Course Hospital Course: Mr. 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 He reported symptoms of fatigue, shortness of breath, lightheadedness, and throat irritation. On arrival, his oxygen saturation was 94% on room air, heart rate 112, and he was hemodynamically stable and alert. He was placed on 4 L oxygen and improved to 98% saturation on room air. Blood work was unremarkable, and chest X-ray showed findings suggestive of mild infiltrates, though the patient denied productive cough, fever, or systemic symptoms of infection. Poison control was contacted and recommended observation for at least six hours. The patient was monitored for over eight hours without any progression of symptoms. At the time of discharge, his only complaint was mild throat soreness, which poison control advised could be managed conservatively with throat lozenges and humidification. Given his stable clinical course, absence of fever, and no clinical signs of lower respiratory tract infection, antibiotics were deemed unnecessary. The patient was cleared for discharge per poison control guidance. His chronic conditions were managed with continuation of home antihypertensive and diabetic medications. The patient was counseled on return precautions and advised to follow up with his primary care physician. I spent 35 minutes [id number] with the patient on the day of discharge performing discharge exam, discussing hospital stay and discharge instructions with patient and caregivers, preparation of discharge records, prescriptions & referral forms and addressing any questions/concerns the patient had as documented above. - Vitals & Intake/Output Vital Signs: Vital Signs Temperature 98.4 F 07/15/24 11:49 Pulse Rate 97 H 07/15/24 11:49 Respiratory Rate 16 07/15/24 11:49 Blood Pressure 154/92 07/15/24 11:49 O2 Sat by Pulse Oximetry 100 07/15/24 11:49 Intake & Output: Intake & Output 07/13/24 07/14/24 07/15/24 07/16/24 11:59 11:59 11:59 11:59 Intake Total 580 Balance 580 Weight 109 kg - Lab Result Diagrams: 07/15/24 07:37 07/15/24 07:37 Lab Results-Last 24 Hrs: Lab Results-Last 24 Hours 07/14/24 07/14/24 07/15/24 Range/Units 00:10 00:10 00:21 WBC 8.1 (4.23-9.07) x10^3/uL RBC 5.31 (4.63-6.08) x10^6/uL Hgb 15.3 (13.7-17.5) g/dL Hct 43.1 (40.1-51.0) % MCV 81.2 (79.0-92.2) fL MCH 28.8 (25.7-32.2) pg MCHC 35.5 (32.3-36.5) g/dL RDW 13.2 (11.6-14.4) % Plt Count 184 (163-337) x10^3/uL MPV 10.8 (9.4-12.4) fL Gran % 50.7 (34.0-67.9) % Immature Gran % (Auto) 0.1 (0.001-0.429) % Nucleat RBC Rel Count 0.0 (0.00-0.2) % Eos # (Auto) 0.31 (0.04-0.54) x10^3/uL Immature Gran # (Auto) 0.01 (0.001-0.031) x10^3u/L Absolute Lymphs (auto) 3.07 (1.32-3.57) x10^3/uL Absolute Monos (auto) 0.47 (0.30-0.82) x10^3/uL Absolute Nucleated RBC 0.00 (0.00-0.012) x10^3u/L Lymphocytes % 38.1 (21.8-53.1) % Monocytes % 5.8 (5.3-12.2) % Eosinophils % 3.8 (0.8-7.0) % Basophils % 1.5 H (0.2-1.2) % Absolute Granulocytes 4.08 (1.78-5.38) x10^3/uL Basophils # 0.12 H (0.01-0.08) x10^3/uL pO2/FiO2 Ratio 21.0 % VBG pH 7.51 H (7.32-7.42) VBG pCO2 at Pat Temp 30 L (42-55) mm/Hg VBG pO2 at Pat Temp 88 H (25-40) mm/Hg VBG HCO3 23.9 (22-28) meq/L VBG O2 Sat (Riley) 98.9 (95-100) VBG Base Excess 1.8 (-2.0-2.0) VBG Hemoglobin 14.9 VBG Carboxyhemoglobin 4.1 (0.0-6.9) % T HGB POC Potassium 3.6 (3.5-5.1) Sodium 142 (135-145) mmol/L Potassium 3.7 (3.5-5.1) mmol/L Chloride 102 (98-107) mmol/L Carbon Dioxide 25 (22-30) mmol/L Anion Gap 18.7 H (5-15) MEQ/L BUN 17 (9-20) mg/dL Creatinine 0.90 (0.66-1.25) mg/dL Estimated GFR 103.4 ML/MIN Glucose 216 H (74-106) mg/dL Calcium 9.7 (8.4-10.2) mg/dL Total Bilirubin 1.20 (0.2-1.3) mg/dL AST 28 (17-59) U/L ALT 22 (0-50) U/L Alkaline Phosphatase 106 (38-126) U/L Troponin I < 0.012 (0.000-0.033) ng/mL Serum Total Protein 8.1 (6.3-8.2) g/dL Albumin 5.1 H (3.5-5.0) g/dL Procalcitonin (0.030-0.080) ng/mL 07/15/24 07/15/24 07/15/24 Range/Units 05:09 07:37 07:37 WBC 6.2 (4.23-9.07) x10^3/uL RBC 5.20 (4.63-6.08) x10^6/uL Hgb 15.0 (13.7-17.5) g/dL Hct 42.3 (40.1-51.0) % MCV 81.3 (79.0-92.2) fL MCH 28.8 (25.7-32.2) pg MCHC 35.5 (32.3-36.5) g/dL RDW 12.9 (11.6-14.4) % Plt Count 151 L (163-337) x10^3/uL MPV 10.1 (9.4-12.4) fL Gran % 88.4 H (34.0-67.9) % Immature Gran % (Auto) 0.3 (0.001-0.429) % Nucleat RBC Rel Count 0.0 (0.00-0.2) % Eos # (Auto) 0.01 L (0.04-0.54) x10^3/uL Immature Gran # (Auto) 0.02 (0.001-0.031) x10^3u/L Absolute Lymphs (auto) 0.61 L (1.32-3.57) x10^3/uL Absolute Monos (auto) 0.05 L (0.30-0.82) x10^3/uL Absolute Nucleated RBC 0.00 (0.00-0.012) x10^3u/L Lymphocytes % 9.8 L (21.8-53.1) % Monocytes % 0.8 L (5.3-12.2) % Eosinophils % 0.2 L (0.8-7.0) % Basophils % 0.5 (0.2-1.2) % Absolute Granulocytes 5.49 H (1.78-5.38) x10^3/uL Basophils # 0.03 (0.01-0.08) x10^3/uL pO2/FiO2 Ratio % VBG pH (7.32-7.42) VBG pCO2 at Pat Temp (42-55) mm/Hg VBG pO2 at Pat Temp (25-40) mm/Hg VBG HCO3 (22-28) meq/L VBG O2 Sat (Riley) (95-100) VBG Base Excess (-2.0-2.0) VBG Hemoglobin VBG Carboxyhemoglobin (0.0-6.9) % T HGB POC Potassium (3.5-5.1) Sodium (135-145) mmol/L Potassium (3.5-5.1) mmol/L Chloride (98-107) mmol/L Carbon Dioxide (22-30) mmol/L Anion Gap (5-15) MEQ/L BUN (9-20) mg/dL Creatinine (0.66-1.25) mg/dL Estimated GFR ML/MIN Glucose (74-106) mg/dL Calcium (8.4-10.2) mg/dL Total Bilirubin (0.2-1.3) mg/dL AST (17-59) U/L ALT (0-50) U/L Alkaline Phosphatase (38-126) U/L Troponin I 0.037 H* 0.042 H* (0.000-0.033) ng/mL Serum Total Protein (6.3-8.2) g/dL Albumin (3.5-5.0) g/dL Procalcitonin (0.030-0.080) ng/mL 07/15/24 07/15/24 Range/Units 07:37 10:39 WBC (4.23-9.07) x10^3/uL RBC (4.63-6.08) x10^6/uL Hgb (13.7-17.5) g/dL Hct (40.1-51.0) % MCV (79.0-92.2) fL MCH (25.7-32.2) pg MCHC (32.3-36.5) g/dL RDW (11.6-14.4) % Plt Count (163-337) x10^3/uL MPV (9.4-12.4) fL Gran % (34.0-67.9) % Immature Gran % (Auto) (0.001-0.429) % Nucleat RBC Rel Count (0.00-0.2) % Eos # (Auto) (0.04-0.54) x10^3/uL Immature Gran # (Auto) (0.001-0.031) x10^3u/L Absolute Lymphs (auto) (1.32-3.57) x10^3/uL Absolute Monos (auto) (0.30-0.82) x10^3/uL Absolute Nucleated RBC (0.00-0.012) x10^3u/L Lymphocytes % (21.8-53.1) % Monocytes % (5.3-12.2) % Eosinophils % (0.8-7.0) % Basophils % (0.2-1.2) % Absolute Granulocytes (1.78-5.38) x10^3/uL Basophils # (0.01-0.08) x10^3/uL pO2/FiO2 Ratio % VBG pH (7.32-7.42) VBG pCO2 at Pat Temp (42-55) mm/Hg VBG pO2 at Pat Temp (25-40) mm/Hg VBG HCO3 (22-28) meq/L VBG O2 Sat (Riley) (95-100) VBG Base Excess (-2.0-2.0) VBG Hemoglobin VBG Carboxyhemoglobin (0.0-6.9) % T HGB POC Potassium (3.5-5.1) Sodium 140 (135-145) mmol/L Potassium 4.3 (3.5-5.1) mmol/L Chloride 103 (98-107) mmol/L Carbon Dioxide 23 (22-30) mmol/L Anion Gap 18.0 H (5-15) MEQ/L BUN 17 (9-20) mg/dL Creatinine 0.70 (0.66-1.25) mg/dL Estimated GFR 111.6 ML/MIN Glucose 293 H (74-106) mg/dL Calcium 9.3 (8.4-10.2) mg/dL Total Bilirubin 1.40 H (0.2-1.3) mg/dL AST 26 (17-59) U/L ALT 21 (0-50) U/L Alkaline Phosphatase 90 (38-126) U/L Troponin I 0.033 (0.000-0.033) ng/mL Serum Total Protein 7.0 (6.3-8.2) g/dL Albumin 4.8 (3.5-5.0) g/dL Procalcitonin 0.042 (0.030-0.080) ng/mL - Radiology Exams Ordered Rad Exams-Entire Visit: Radiology Procedures Category Date Time Status CHEST 1 VIEW (PORTABLE) Stat Exams 07/14/24 23:59 Completed - Procedures and Test Procedures and Tests throughout Hospitalization: Therapy Orders & Screens 07/15/24 01:29 Oxygen Nasal Cannula 2 lpm Comment: Diagnosis: Anhydrous ammonia exposure 07/15/24 05:52 Respiratory Therapy Assessment DAILY Comment: Diagnosis: Anhydrous ammonia exposure 07/15/24 06:31 EKG ROUTINE Comment: Diagnosis: Anhydrous ammonia exposure Discharge Exam General Appearance: no apparent distress Neurologic Exam: alert, oriented x 3, cooperative Eye Exam: PERRL Ears, Nose, Throat Exam: normal ENT inspection Neck Exam: normal inspection Respiratory Exam: normal breath sounds, lungs clear Cardiovascular Exam: regular rate/rhythm, normal heart sounds Gastrointestinal/Abdomen Exam: soft, normal bowel sounds Male Genitalia Exam: deferred Rectal Exam: deferred Back Exam: normal inspection Extremity Exam: normal inspection Skin Exam: normal color Final Diagnosis/Problem List - Final Discharge Diagnosis/Problem (1) Toxin exposure Current Visit: Yes Status: Acute Assessment & Plan: -Anhydrous Ammonia -Cleared for discharge by poison control after >8 hours of stable observation. -No evidence of acute lung injury or secondary infection. -Symptomatic care only: -Use throat lozenges and home humidifier as needed. -Return to the ER if symptoms such as worsening dyspnea, cough, or wheezing develop. Code(s): Z77.29 - CONTACT WITH AND EXPOSURE TO OTHER HAZARDOUS SUBSTANCES (2) Lung infiltrate Current Visit: Yes Status: Acute Assessment & Plan: No clinical evidence of infection at this time. No antibiotics prescribed. Outpatient follow-up with PCP for reassessment if symptoms develop Code(s): R91.8 - OTHER NONSPECIFIC ABNORMAL FINDING OF LUNG FIELD (3) Diabetes mellitus Current Visit: Yes Status: Acute Assessment & Plan: Continue home diabetic medications. Continue home glucose monitoring. Outpatient PCP follow-up. Code(s): E11.9 - TYPE 2 DIABETES MELLITUS WITHOUT COMPLICATIONS (4) Hypertension Current Visit: Yes Status: Acute Assessment & Plan: Resume home blood pressure medications. Monitor blood pressure at home. Outpatient PCP follow-up. Code(s): I10 - ESSENTIAL (PRIMARY) HYPERTENSION - Discharge Discharge Date: 07/15/24 Disposition: Home, Self-Care Condition: Stable Prescriptions: Continue Lisinopril 10 mg [Zestril 10 MG] 10 mg PO DAILY Semaglutide [Ozempic] 0.5 mg SQ WEEKLY Follow up with: THOR UNDERWOOD DO [Primary Care Provider, [facility]]
== END 2024-07-15 13:45 | disposition home or self-care (01) ==
LOC: ED 23:55 → MED SURG 07-15 01:00
PROVIDERS: ADMIT Internal Medicine; ATTEND Internal Medicine
DX: Z57.4 Occupational exposure to toxic agents in agriculture (principal); R91.8 Other nonspecific abnormal finding of lung field; E11.9 Type 2 diabetes mellitus without complications; I10 Essential (primary) hypertension; Z79.899 Other long term (current) drug therapy; J40 Bronchitis, not specified as acute or chronic
CPT/HCPCS: 36415; 71045; 80053; 82805; 84145; 84484; 85025; 93005; 93041; 93268; 94760; 94762; 99285; G0378; Q3014; 99284; J0456; J0696; J1650; J2919; A9270-GY